=== PATIENT | male | born 1960 | race Caucasian/White ===

== ENCOUNTER 2017-05-12 10:07 | Outpatient (CLI) | payer OTHER ==
[2017-05-12 10:37] LABS: #Eosinphils 0.1 thou/uL (0.0-0.7); #Lymphocytes 1.2 thou/uL (1.20-3.40); #Neutrophils 6.4 thou/uL (1.40-6.50); %Basophils 0.3 % (0.0-1.0); %Lymphocytes 13.5 % (21.0-51.0); %Monocytes 11.9 % (0.0-10.0); Mean Platelet Volume 6.5 fL (7.4-10.4); Red Blood Cell (RBC) Count 4.39 mill/uL (4.70-6.10); White Blood Cell (WBC) Count 8.8 thou/uL (4.8-10.8)
[2017-05-12 10:51] LABS: Hemoglobin A1c 4.6 % (4.0-6.0)
[2017-05-12 11:06] LABS: Anion Gap 15 mmol/L (10-20); BUN (Urea Nitrogen) 5 mg/dL (8.4-25.7); Calc. Creatinine Clearance 0 mL/min (70-130); Calcium 9.8 mg/dL (7.8-10.44); Carbon Dioxide 26 mmol/L (22-29); Chloride 92 mmol/L (98-107); Estimated GFR-MDRD Greater than 90
== END 2017-05-12 10:08 | disposition home or self-care (01) ==
LOC: LABBT 10:07
PROVIDERS: ATTEND Surgery
DX: Z01.812 Encounter for preprocedural laboratory examination (principal); C18.9 Malignant neoplasm of colon, unspecified
CPT/HCPCS: 80048; 83036; 85025

== ENCOUNTER 2017-05-12 10:30 | Inpatient (IN) | payer OTHER ==
[2017-05-12 10:32] VITALS: BMI 20.6
[2017-05-16] MEDS ORDERED: Sodium Chloride 0.9% 100 ML ONE (09:36)
[2017-05-16] MEDS ORDERED: Fentanyl 100 MCG/2 ML VIAL ONE ×4 (09:49→13:34)
[2017-05-16] MEDS ORDERED: Dexamethasone 4 mg/ml Vial ONE (09:49)
[2017-05-16] MEDS ORDERED: Midazolam HCl 2 mg/2 ml Vial ONE (09:49)
[2017-05-16] MEDS ORDERED: Fentanyl 250 MCG/5 ML VIAL ONE (11:08)
[2017-05-16] MEDS ORDERED: Propofol 200 MG/20 ML VIAL ONE (11:25)
[2017-05-16] MEDS ORDERED: Glycopyrrolate 0.2 MG/ML 5 ML SYRINGE ONE (11:25)
[2017-05-16] MEDS ORDERED: Lidocaine 1% PF 5 ML VIAL ONE (11:25)
[2017-05-16] MEDS ORDERED: Ondansetron HCl/PF 4 MG/2 ML Vial ONE (11:25)
[2017-05-16] MEDS ORDERED: Dexamethasone 20 MG/5 ML VIAL ONE (11:25)
[2017-05-16] MEDS ORDERED: Ketorolac Tromethamine 30 MG/ML VIAL ONE (11:25)
[2017-05-16] MEDS ORDERED: Bupivacaine PF 0.5% 30 ML VIAL ONE (11:46)
[2017-05-16] MEDS ORDERED: Fentanyl 100 MCG/2 ML VIAL SLOW IVP PRN (13:16)
[2017-05-16] MEDS ORDERED: Ondansetron HCl/PF 4 MG/2 ML Vial IVP PRN ×2 (13:18→13:38)
[2017-05-16] MEDS ORDERED: Promethazine HCl 25 MG/ML VIAL IM PRN (13:38)
[2017-05-16] MEDS ORDERED: traMADol HCl 50 MG TAB PO PRN (13:38)
[2017-05-16] MEDS: Sodium Chloride 0.9% 1,000 ML IV SCH ×2 (14:21→14:59)
[2017-05-16] MEDS: traMADol HCl 50 MG TAB PO PRN (17:51)
[2017-05-16] MEDS: Famotidine/PF 20 mg/2ml Vial SLOW IVP SCH (20:34)
[2017-05-16] MEDS: Enoxaparin Sodium 40 MG/0.4 ML SYRINGE SC SCH (20:34)
[2017-05-16] MEDS: Famotidine 20 MG TAB PO SCH (20:40)
[2017-05-17] MEDS: Sodium Chloride 0.9% 1,000 ML IV SCH (04:58)
[2017-05-17 05:42] LABS: #Lymphocytes 1.9 thou/uL (1.20-3.40); #Monocytes 1.1 thou/uL (0.11-0.59); #Neutrophils 9.4 thou/uL (1.40-6.50); %Basophils 0.3 % (0.0-1.0); %Eosinophils 0.2 % (0.0-10.0); %Lymphocytes 15.5 % (21.0-51.0); %Monocytes 8.9 % (0.0-10.0); Hematocrit 34.5 % (42.0-52.0); Mean Platelet Volume 6.5 fL (7.4-10.4); Red Blood Cell (RBC) Count 3.69 mill/uL (4.70-6.10); White Blood Cell (WBC) Count 12.4 thou/uL (4.8-10.8)
[2017-05-17 05:57] LABS: Anion Gap 14 mmol/L (10-20); BUN (Urea Nitrogen) 6 mg/dL (8.4-25.7); Calc. Creatinine Clearance 86 mL/min (70-130); Calcium 8.9 mg/dL (7.8-10.44); Carbon Dioxide 20 mmol/L (22-29); Chloride 98 mmol/L (98-107); Estimated GFR-MDRD Greater than 90
[2017-05-17] MEDS: traMADol HCl 50 MG TAB PO PRN ×3 (06:28→19:57)
[2017-05-17] MEDS ORDERED: Sodium Chloride 0.9% 1,000 ML IV SCH (08:24)
[2017-05-17] MEDS: Famotidine 20 MG TAB PO SCH ×2 (08:24→20:01)
[2017-05-17] MEDS: Lisinopril/Hydrochlorothiazide 10 mg/12.5 mg Tablet PO SCH (08:25)
[2017-05-17] MEDS: Famotidine/PF 20 mg/2ml Vial SLOW IVP SCH ×2 (08:25→20:00)
--- NOTE | 2017-05-17 10:35 | PRG ---
DATE OF SERVICE: 05/17/2017 Postop day #1, ileostomy takedown. Mr. Borjas has no complaints. He is afebrile. Vital signs are stable. His abdominal dressings are changed. He has lots of drainage because he has a Monica in the wound, but there is no ongoing bleeding, no infection. ASSESSMENT: Postop day #1 ileostomy takedown. PLAN: Advance to full liquid diet. Continue oral pain control. Likely discontinue home tomorrow.
[2017-05-17] MEDS: Enoxaparin Sodium 40 MG/0.4 ML SYRINGE SC SCH (20:01)
[2017-05-18] MEDS: Famotidine 20 MG TAB PO SCH (08:21)
[2017-05-18] MEDS: Lisinopril/Hydrochlorothiazide 10 mg/12.5 mg Tablet PO SCH (08:21)
[2017-05-18] MEDS: traMADol HCl 50 MG TAB PO PRN (08:22)
[2017-05-18] MEDS: Famotidine/PF 20 mg/2ml Vial SLOW IVP SCH (08:31)
--- NOTE | 2017-05-18 09:53 | DIS ---
ADMITTING DIAGNOSIS: Attention to ileostomy, history of colon cancer. DISCHARGE DIAGNOSIS: Attention to ileostomy, history of colon cancer. PROCEDURES: Ileostomy takedown by Dr. Daly without complication. CONDITION AT DISCHARGE: Improved. STAFF: Dr. Tanmay Daly HOSPITAL COURSE: The patient was admitted postop on a clear liquid diet, ambulatory from immediatel y postop. Postop day #1, doing well, advanced to full liquids. Postop day 2, he is doing quite wel l. His vital signs are stable. His wound is clear. The Alanson was removed. He is discharged beatriz e. He will follow up with me in 2 weeks. Prescription for tramadol and Zofran faxed over to [facility] in [place].
[2017-05-18 12:14] VITALS: BP 122/85; TEMP 97.7
--- NOTE | 2017-05-19 14:30 | OP ---
DATE OF PROCEDURE: 05/16/2017 PREOPERATIVE DIAGNOSES: 1. History of left colon cancer with diverting ileostomy. 2. Attention to ileostomy. POSTOPERATIVE DIAGNOSES: 1. History of left colon cancer with diverting ileostomy. 2. Attention to ileostomy. PROCEDURE PERFORMED: Ileostomy takedown with small bowel resection and anastomosis. SURGEON: Tanmay Daly M.D. ANESTHESIA: General. ESTIMATED BLOOD LOSS: Minimal. COMPLICATIONS: None. SPECIMEN: Small bowel. TECHNIQUE: Preoperatively, the abdomen was shaved in the preop holding area. The patient was taken to the operating room and placed supine on the table. After general anesthetic was obtained, a Fol ey was placed. The abdomen was prepped and draped in a sterile fashion. The ileostomy skin was ell ipsed out. Cautery dissection was performed along the small bowel all the way to the fascial openin g. The abdominal cavity was entered. There were minimal adhesions. Circumferential dissection irma und was performed allowing the more proximal and distal small bowel to be brought up into the wound as well. EMILY-75 was used to fire across the small bowel proximal and distal to the ileostomy site. Enterotomy was made on the antimesenteric surface of the two ends and a tjit-wp-difd anastomosis wa s performed using a EMILY-75 stapler. The common enterotomy was closed using TA-60 stapler, destiny mcmahan and all corners were oversewn using silk suture. The previous small bowel ostomy segment was s ent to path for final diagnosis. Mesenteric defect closed using silk sutures. The anastomosed inte modesto was placed back into the abdominal cavity. Posterior and anterior fascia were closed separate ly using PDS suture. The tissues were irrigated using sterile solution. Skin was closed using a pu rsestring 2-0 Prolene suture, a Monica was left in the wound. Sterile dressings are placed. The p atient was en route to recovery in stable condition. All instrument counts, needle counts, and lap counts were correct.
== END 2017-05-18 13:05 | disposition home or self-care (01) | DRG 331 ==
LOC: SURG A 05-16 08:38 → SJJU 05-16 13:58
PROVIDERS: ADMIT Surgery; ATTEND Surgery
PROC: 0DBB0ZZ Excision of Ileum, Open Approach (ICD-10-PCS; principal; 2017-05-16)
DX: Z43.2 Encounter for attention to ileostomy (principal); Z85.038 Personal history of other malignant neoplasm of large intestine
CPT/HCPCS: 36415; 36416; 80048; 85025; J0360; J0694; J1100; J1650; J1885; J2001; J2250; J2405; J2704; J3010; J7050; S0020; S0028

== ENCOUNTER 2017-09-14 11:39 | Outpatient (CLI) | payer OTHER ==
--- NOTE | 2017-09-14 15:37 | PET ---
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 Exam requested for restaging. Status post chemotherapy. TECHNIQUE: PET scanning with CT attenuation correction was performed from the base of the brain through the prox imal thighs following the intravenous administration of 9.7 mCi F18-FDG in the right antecubital tuyet a. COMPARISON: None. CORRELATION: CT chest, abdomen, and pelvis dated 02/24/17. FINDINGS: There is a new 7.0 mm parenchymal lung nodule in the suprahilar region of the left upper lobe since t he CT scan of 02/24/17. This demonstrates increased FDG localization and a SUV of 6.8. No other hyper metabolic pulmonary nodules are seen. No hypermetabolic cervical, mediastinal, hilar, or axillary lymph nodes are seen. Numerous hypermetabolic liver lesions are seen with a maximum SUV of 9.2. There are hypermetabolic ly mph nodes in the abdomen and pelvis, including the portocaval lymph node (SUV 6), aortocaval lymph no de (SUV 3), and the left external iliac lymph node (SUV 4.5). No hypermetabolic adrenal or skeletal lesions are seen. There is physiologic activity in the GI and tracts, and the visualized portions of the brain. The CT scan used for attenuation correction demonstrates no evidence of pleural effusions. Minimal as cites is present. IMPRESSION: Findings are consistent with metastatic disease involving the liver, lung, and lymph nodes. POS: [facility]
== END 2017-09-14 11:40 | disposition home or self-care (01) ==
LOC: PET 11:39
PROVIDERS: ATTEND Internal Medicine Medical Oncology
DX: C18.7 Malignant neoplasm of sigmoid colon (principal)
CPT/HCPCS: 78815; A9552

== ENCOUNTER 2017-09-19 07:25 | Day surgery (SDC) | payer OTHER ==
[2017-09-11 11:57] VITALS: BMI 20.1
[2017-09-19] MEDS ORDERED: CEFAZOLIN/Water 2 GM/20 ML SYRINGE ONE (08:23)
[2017-09-19 08:26] LABS: Anion Gap 15 mmol/L (10-20); BUN (Urea Nitrogen) 5 mg/dL (8.4-25.7); Calc. Creatinine Clearance 90 mL/min (70-130); Calcium 11.1 mg/dL (7.8-10.44); Carbon Dioxide 31 mmol/L (22-29); Chloride 92 mmol/L (98-107); Estimated GFR-MDRD Greater than 90; Glucose 72 mg/dL (70-105); Potassium 3.7 mmol/L (3.5-5.1); Sodium 134 mmol/L (136-145)
[2017-09-19] MEDS ORDERED: Lidocaine 1% w/Epinephrine 1:200K 30 ML VIAL ONE (09:18)
[2017-09-19] MEDS ORDERED: Bupivacaine PF 0.5% 30 ML VIAL ONE (09:18)
[2017-09-19] MEDS ORDERED: Fentanyl 100 MCG/2 ML VIAL ONE ×2 (09:25→10:56)
[2017-09-19] MEDS ORDERED: Midazolam HCl 2 mg/2 ml Vial ONE (09:25)
[2017-09-19] MEDS ORDERED: Promethazine HCl 25 MG/ML VIAL IM/IV PRN (11:10)
[2017-09-19] MEDS ORDERED: Non-Formulary Medication 1 EACH PO PRN (11:10)
[2017-09-19] MEDS ORDERED: Ondansetron HCl/PF 4 MG/2 ML Vial IVP PRN (11:10)
[2017-09-19] MEDS ORDERED: Dexamethasone 20 MG/5 ML VIAL ONE (16:14)
[2017-09-19] MEDS ORDERED: Ondansetron HCl/PF 4 MG/2 ML Vial ONE (16:14)
[2017-09-19] MEDS ORDERED: Lidocaine 1% PF 5 ML VIAL ONE (16:14)
[2017-09-19] MEDS ORDERED: Propofol 200 MG/20 ML VIAL ONE (16:14)
--- NOTE | 2017-09-19 23:21 | OP ---
DATE OF PROCEDURE: 09/19/2017 PREOPERATIVE DIAGNOSIS: Incisional hernia. POSTOPERATIVE DIAGNOSIS: Incisional hernia. PROCEDURE: Incisional hernia repair with mesh, Proceed ventral patch 6 cm. SURGEON: Tanmay Daly M.D. ANESTHESIA: General. ESTIMATED BLOOD LOSS: Minimal. COMPLICATIONS: None. TECHNIQUE: The patient was taken to the operating room and placed supine on the table. After genera l anesthetic was obtained, the abdomen was shaved, prepped and draped in a sterile fashion. The ileo stomy site in the right lower quadrant is reopened and cautery is dissected down to the hernia sac. The hernia sac was dissected all the way down to a fascial defect. The edges of the defect were fres hened. A 6 cm Proceed ventral patch was brought into the sterile field. The underlay was placed in the abdominal cavity. It tails pulled up laterally against the posterior abdominal wall. The tails of the mesh were sewn via U stitch of Ethibond to all four sides. The tails were then cut at the lev el of the fascia. The muscles were closed loosely over the mesh. The wound was irrigated. Local an esthetic was applied. The wound was closed using 3-0 Vicryl, 4-0 Monocryl, and Dermabond. The patie nt was en route to recovery in stable condition. All instrument counts, needle counts, and lap count s were correct.
== END 2017-09-19 12:25 | disposition home or self-care (01) ==
LOC: SDC 07:25
PROVIDERS: ATTEND Surgery
PROC: 0WUF0JZ Supplement Abdominal Wall with Synthetic Substitute, Open Approach (ICD-10-PCS; principal; 2017-09-19)
DX: K43.2 Incisional hernia without obstruction or gangrene (principal); C18.9 Malignant neoplasm of colon, unspecified; Z79.899 Other long term (current) drug therapy; Z88.6 Allergy status to analgesic agent; Z88.8 Allergy status to other drugs, medicaments and biological substances; Z90.49 Acquired absence of other specified parts of digestive tract; Z98.890 Other specified postprocedural states; C18.7 Malignant neoplasm of sigmoid colon
CPT/HCPCS: 36415; 80048; 80053; 82248; 82378; 83615; 84100; 84550; 96374; C1781; J1100; J2001; J2250; J2405; J2704; J3010; S0020

== ENCOUNTER 2017-12-18 12:28 | Observation (INO) | payer OTHER ==
[2017-12-18] MEDS ORDERED: Morphine 4 MG/ML VIAL ONE ×2 (13:42→17:00)
[2017-12-18 13:54] LABS: Hemoglobin 10.6 g/dL (14.0-18.0); Mean Corpuscular HGB CONC 33.4 g/dL (32.0-36.0); Mean Corpuscular Hemoglobin 33.2 pg (27.0-31.0); Mean Corpuscular Volume 99.2 fl (80.0-94.0); Mean Platelet Volume 6.8 fL (7.4-10.4); Platelet Count 279 thou/uL (130-400); RBC Distribution Width 15.8 % (11.5-14.5); Red Blood Cell (RBC) Count 3.21 mill/uL (4.70-6.10); White Blood Cell (WBC) Count 7.3 thou/uL (4.8-10.8)
[2017-12-18 14:10] LABS: #Eosinphils 0.4 thou/uL (0.0-0.7); #Lymphocytes 1.1 thou/uL (1.20-3.40); #Monocytes 0.7 thou/uL (0.11-0.59); #Neutrophils 5.1 thou/uL (1.40-6.50); %Basophils 0.4 % (0.0-1.0); %Eosinophils 4.9 % (0.0-10.0); %Lymphocytes 15.5 % (21.0-51.0); %Monocytes 9.4 % (0.0-10.0); %Neutrophils 69.8 % (42.0-75.0); ALT (SGPT) 21 U/L (8-55); AST (SGOT) 79 U/L (5-34); Albumin 2.5 g/dL (3.5-5.0); Alkaline Phosphatase 848 U/L (40-150); Anion Gap 13 mmol/L (10-20); Anisocytosis SLIGHT = 6-15 cells (100X) (0-5/hpf); BUN (Urea Nitrogen) 14 mg/dL (8.4-25.7); Band 3 % (5-11); Bilirubin, Total 3.4 mg/dL (0.2-1.2); Calc. Creatinine Clearance 0 mL/min (70-130); Calcium 9.6 mg/dL (7.8-10.44); Carbon Dioxide 26 mmol/L (22-29); Chloride 95 mmol/L (98-107); Eosinophils 4 % (0-10); Estimated GFR-MDRD Greater than 90; Glucose 72 mg/dL (70-105); Lipase 8 U/L (8-78); Lymphocytes 13 % (21-51); MDiff Complete? YES; Monocytes 2 % (0-10); Neutrophil 73 % (42-75); PLT Morphology Comment Appears Adequate; Polychromasia SLIGHT = 2-3 cells (100X) (0-2/hpf); Potassium 4.3 mmol/L (3.5-5.1); Protein, Total 7.5 g/dL (6.0-8.3); Reactive Lymphocytes 2 % (0-10); Schistocytes SLIGHT = 2-5 cells (100X) (0-1/hpf); Sodium 130 mmol/L (136-145); Target Cells SLIGHT = 2-5 cells (100X) (0-1/hpf)
[2017-12-18] MEDS ORDERED: Morphine 4 MG/ML VIAL SLOW IVP PRN ×3 (19:43→20:15)
[2017-12-18] MEDS ORDERED: Ondansetron ODT 8 MG TAB SL PRN (19:56)
[2017-12-18] MEDS ORDERED: Ondansetron HCl/PF 4 MG/2 ML Vial IVP PRN (19:56)
[2017-12-18] MEDS ORDERED: D5 1/2 NS w/20 mEq KCL 1,000 ML IV SCH (20:00)
[2017-12-18] MEDS: Sodium Chloride 0.9% 1,000 ML IV SCH (20:47)
[2017-12-18] MEDS ORDERED: Simvastatin 20 MG TAB PO SCH (21:00)
[2017-12-18] MEDS ORDERED: Milk Of Magnesia 30 ML UDCUP PO PRN (22:12)
[2017-12-18] MEDS ORDERED: Calcium Carbonate 500 MG ChewTAB PO PRN (22:12)
[2017-12-18] MEDS ORDERED: Bisacodyl 10 MG SUPP PR PRN (22:12)
[2017-12-18 22:51] VITALS: BMI 21.7
--- NOTE | 2017-12-18 22:58 | HP ---
DATE OF ADMISSION: 12/19/2017 PRIMARY CARE PHYSICIAN: Dr. Sae Pierre. PRIMARY ONCOLOGIST: Dr. Faye. CHIEF COMPLAINT: Abdominal pain. HISTORY OF PRESENT ILLNESS: Patient is a 57-year-old male with metastatic colon cancer presented to the emergency room with worsening abdominal pain of approximately one-week duration that got worse to day. The pain was 9/10 mainly in the lower quadrants. He also had some nausea and was unable to rosanna erate food. He had some constipation; however, after MiraLax, he had a bowel movement. No fever or chills were reported. In the emergency room, initial vital signs showed temperature 97.6, respiration rate 18, pulse of 96 with blood pressure 119/87 with O2 saturation 99% on room air. Patient had called Dr. Addy calhoun. Dr. Daly who recommended overnight observation for pain control and IV fluids. The porter sample case in the emergency room also started hospice referral through [facility]. Patient rece ived 2 doses of IV morphine 4 mg along with IV fluids. His pain has significantly improved after thi s. PAST MEDICAL HISTORY: 1. Hyperlipidemia. 2. Metastatic colon cancer. 3. Hypertension. PAST SURGICAL HISTORY: 1. Colon surgery. 2. Hernia repair. ALLERGIES: Patient is allergic to ACETAMINOPHEN and OXALIPLATIN. CURRENT HOME MEDICATIONS: Lisinopril 5 mg daily, simvastatin 10 mg at bedtime. SOCIAL HISTORY: Patient currently lives at home, has been smoking for last 30 years. Denies signifi cant use of alcohol. No drug use. FAMILY HISTORY: Negative for heart disease. REVIEW OF SYSTEMS: The following complete review of systems was negative, unless otherwise mentioned in the HPI or below: Constitutional: Weight loss or gain, ability to conduct usual activities. Sk in: Rash, itching. Eyes: Double vision, pain. ENT/Mouth: Nose bleeding, neck stiffness, pain, te nderness. Cardiovascular: Palpitations, dyspnea on exertion, orthopnea. Respiratory: Shortness of breath, wheezing, cough, hemoptysis, fever, or night sweats. Gastrointestinal: Poor appetite, abdo torin pain, heartburn, nausea, vomiting, constipation, or diarrhea. Genitourinary: Urgency, frequen cy, dysuria, nocturia. Musculoskeletal: Pain, swelling. Neurologic/Psychiatric: Anxiety, depressi on. Allergy/Immunologic: Skin rash, bleeding tendency. PHYSICAL EXAMINATION: VITAL SIGNS: As discussed above. GENERAL: A 57-year-old male in no distress, cachectic appearing. His pain has improved after morphi ne. HEENT: Head atraumatic, normocephalic. Sclerae anicteric. Dry mucous membranes. No oral lesion. NECK: Supple. No JVD appreciated. No carotid bruit. LUNGS: Clear to auscultation bilaterally. No wheezing, rales, or rhonchi. HEART: S1, S2 present. Regular rate and rhythm. No murmur, rubs, or gallops. ABDOMEN: Soft, distended, generalized tenderness over the lower quadrant. No rebound, guarding. No costovertebral angle tenderness. EXTREMITIES: No edema or calf tenderness. NEUROLOGIC: Grossly nonfocal, moves all four extremities. PSYCHIATRY: Alert, awake, oriented x3. SKIN: Warm and dry. LYMPH NODES: No palpable lymph nodes in the neck. PERIPHERAL VASCULAR: Radial pulses palpable bilaterally. MUSCULOSKELETAL: No joint swelling or tenderness. LABORATORY DATA AND X-RAY FINDINGS: CBC showed WBC 7.3 with hemoglobin 10.6, platelet count 279. Ch emistries showed sodium 130, potassium 4.3, chloride 95, bicarbonate 26, BUN 14, creatinine 0.76. To darnell bilirubin 3.4 with AST 79, ALT 21, alkaline phosphatase 848, albumin 2.5. IMPRESSION AND PLAN: 1. Generalized weakness/cancer cachexia/failure to thrive due to metastatic colon cancer. Chemother apy has been discontinued by Oncology. Patient will be monitored overnight. We will continue IV flu ids and morphine as needed for pain control. [facility] is currently working on home hospice . 2. Abnormal liver function tests secondary to metastatic colon cancer. 3. Ongoing tobacco abuse. Patient was counseled. 4. Hypertension. Lisinopril will be continued withholding parameters. 5. Hyperlipidemia. We will hold simvastatin due to abnormal liver function tests. 6. Moderate protein Mild malnutrition. 7. Hyponatremia secondary to dehydration. 8. Chronic anemia, probably secondary to chronic disease/nutritional deficiency. Plan of care was discussed with the patient in detail, he stated understanding.
[2017-12-18] MEDS: Morphine 4 MG/ML VIAL SLOW IVP PRN (23:01)
[2017-12-19] MEDS: Morphine 4 MG/ML VIAL SLOW IVP PRN ×2 (03:31→08:52)
[2017-12-19 04:10] VITALS: BP 116/79; TEMP 97.9
[2017-12-19] MEDS: Sodium Chloride 0.9% 1,000 ML IV SCH (06:44)
--- NOTE | 2017-12-19 08:45 | PDOC.PN ---
- Subjective Encounter Start Date: 12/19/17 Encounter Start Time: 10:30 Subjective: Patient with improved N/V. Morphine helping pain. Ready to go -: home on hospice. - Objective Resuscitation Status: Resuscitation Status FULL:Full Resuscitation MAR Reviewed: Yes Vital Signs & Weight: Vital Signs (12 hours) Temp Pulse Resp BP Pulse Ox 12/19/17 04:00 97.9 F 92 18 116/79 94 L 12/19/17 00:00 98.1 F 101 H 18 117/84 97 12/18/17 22:58 95 Weight Weight 119 lb 1 oz I&O: 12/18/17 12/19/17 12/20/17 06:59 06:59 06:59 Intake Total 1358.0 Output Total 200 Balance 1158.0 Result Diagrams: 12/18/17 13:28 12/18/17 13:28 Phys Exam - Physical Examination Constitutional: NAD cachetic HEENT: moist MMs Respiratory: no wheezing, no rales, no rhonchi Cardiovascular: RRR, no significant murmur distended, firm, positive bowel sounds Neurological: non-focal, moves all 4 limbs Psychiatric: normal affect, A&O x 3 Dx/Plan (1) Metastatic colon cancer to liver Code(s): C18.9 - MALIGNANT NEOPLASM OF COLON, UNSPECIFIED; C78.7 - SECONDARY MALIG NEOPLASM OF LIVER AND INTRAHEPATIC BILE DUCT Status: Acute Comment: chemotherapy d/c'd, patient wants to go home on hospice (2) Failure to thrive in adult Status: Acute (3) HTN (hypertension) Code(s): I10 - ESSENTIAL (PRIMARY) HYPERTENSION Status: Chronic Comment: controlled with lisinopril - Plan cont current plan of care Continue morphine -: Home on hospice today * . - Discharge Day Encounter end time: 10:45
[2017-12-19] MEDS ORDERED: Lisinopril 10 MG TAB PO SCH (09:00)
[2017-12-19] MEDS ORDERED: Prevnar 13-Val Conj/PF 0.5 ML SYRINGE IM ONE (09:00)
--- NOTE | 2017-12-19 17:21 | DIS ---
PRIMARY CARE PHYSICIAN: Sae Pierre MD PRIMARY ONCOLOGIST: Dr. Faye. REASON FOR ADMISSION: Abdominal pain. DISCHARGE DIAGNOSES: 1. Metastatic colon cancer, failed chemotherapy. 2. Generalized weakness and cachexia from cancer. 3. Abdominal pain secondary to #1. 4. Dehydration. 5. Hypertension. 6. Hyperlipidemia. 7. Chronic anemia. PROCEDURES: None. CONSULTATIONS: None. SUMMARY OF HOSPITAL COURSE: This is a 57-year-old white male with history of metastatic colon cancer , who has been treated with chemotherapy, which has now been discontinued. He presented to the emerg ency room with abdominal pain and not been able to drink or eat much, feelings of nausea and vomiting . He called Dr. Daly who recommended that he go to the emergency room. In the ER, the ER doctor discussed case with the family and the patient, he determined he will undergo home on hospice. [facility] was notified in the emergency room; however, they were unable to set up medications and so he was kept overnight. Overnight, his pain was controlled with morphine. He was given some IV f luids. He saw a little better in the morning. This morning, patient has his medication setup at [facility] and so he is being discharged home. DISCHARGE MANAGEMENT: Discharged home with [facility]. ACTIVITIES: As tolerated. DIET: As tolerated. MEDICATIONS: As per hospice.
== END 2017-12-19 10:53 | disposition home health service (06) ==
LOC: ERS 12:28 → ONC 17:40
PROVIDERS: ADMIT Emergency Medicine; ATTEND Emergency Medicine
DX: G89.3 Neoplasm related pain (acute) (chronic) (principal); C18.9 Malignant neoplasm of colon, unspecified; D63.0 Anemia in neoplastic disease; C78.7 Secondary malignant neoplasm of liver and intrahepatic bile duct; E87.1 Hypo-osmolality and hyponatremia; E86.0 Dehydration; I10 Essential (primary) hypertension; E78.5 Hyperlipidemia, unspecified; F17.210 Nicotine dependence, cigarettes, uncomplicated; R94.5 Abnormal results of liver function studies; E44.0 Moderate protein-calorie malnutrition; Z68.21 Body mass index [BMI] 21.0-21.9, adult; Z92.21 Personal history of antineoplastic chemotherapy; Z79.899 Other long term (current) drug therapy; Z88.8 Allergy status to other drugs, medicaments and biological substances
CPT/HCPCS: 80053; 83690; 85025; 96361; 96374; 96376; A4216; G0378; J2270